=== PATIENT | female | born 1940 | race Caucasian/White ===

== ENCOUNTER → 2020-10-09 | Outpatient (CLI) | payer MEDICARE | LOC: KOH-I 11:09 | DX: E04.1 Nontoxic single thyroid nodule (principal); E07.89 Other specified disorders of thyroid | CPT/HCPCS: 76536 ==

== ENCOUNTER → 2021-04-23 | Outpatient (CLI) | payer MEDICARE | LOC: OPSV 10:47 | DX: M81.0 Age-related osteoporosis without current pathological fracture (principal) | CPT/HCPCS: 96365; J3489 ==